=== PATIENT | male | born 1965 | race Caucasian/White ===

== ENCOUNTER 2019-10-21 14:03 | Emergency (ER) | payer OTHER ==
[~2019-10-21] VITALS: Ht 170.2 cm; Wt 59.0 kg
[~2019-10-21 14:03] MED LIST: ALPRAZOLAM2 MG PO; AMITRIPTYLINE H10 M1 PO; AMITRIPTYLINE H25 M4 PO; ATORVASTATIN CA40 MG PO; AUGMENTIN 875875 MG PO; CLONAZEPAM; CLONAZEPAM 1 MG1 M1 PO; CLONAZEPAM PO; DEPO-TESTO100 MG/1 M IM; ELAVIL; FUROSEMIDE; GLUCOPHAGE XR500 MG PO; GLUCOPHAGE500 MG PO; HYDROCODON-ACE1 EAC5 PO; HYDROCODONE-AP1 EAC6; HYDROMORPHONE IT; LASIX 20 MG TAB20 MG PO; LEVOTHYROXIN0.112 M1 PO; LISINOPRIL10 MG PO; LYRICA 50 MG50 MG PO; LYRICA100 MG PO; LYRICA200 MG PO; MELOXICAM7.5 MG PO; METFORMIN PO; METHOCARBAMOL750 MG PO; MIRALAX255 GM PO; MULTIVITAMINS PO; NORCO 5-325 TA1 EACH PO; OXYCONTIN20 M1 PO; PERCOCET 10-321 EACH; POTASSIUM20 PO; PROAIR HFA8.5 GM INH; RANITIDINE HCL150 M1 PO; SYNTHROID; SYNTHROID50 MCG PO; VITAMIN B-12100 MC1 PO; XANAX XR1 MG PO; ZETIA10 MG PO; [UNRECOGNIZED DRUG - OTHER]
[2019-10-21 15:38] LABS: ABSOLUTE NEUTROPHILS 3.7 thou/uL (1.4-8.2); BASOPHILS 1.4 % (0.0-2.0); EOSINOPHILS 5.3 % (0.0-3.0); HEMATOCRIT 40.2 % (42.0-52.0); HEMOGLOBIN 13.5 gm/dL (14.0-18.0); LYMPHOCYTES 35.2 % (24.0-44.0); MCH 30.8 pg (26.0-34.0); MCHC 33.7 g/dL (28.0-37.0); MCV 91.3 fL (80.0-100.0); MONOCYTES 6.6 % (1.0-8.0); PLATELET COUNT 260 thou/uL (150-400); POLYS 51.5 % (36.0-66.0); RDW 14.6 % (10.5-14.5); WBC 7.3 thou/uL (4.0-11.0)
[2019-10-21 15:50] LABS: ANION GAP 7 mmol/L (7-16); BUN 16 mg/dL (7-18); CALCIUM 8.8 mg/dL (8.5-10.1); CHLORIDE 104 mmol/L (98-107); CO2 29 mmol/L (21-32); GLUCOSE 94 mg/dL (74-106); POTASSIUM 4.2 mmol/L (3.5-5.1); SODIUM 140 mmol/L (136-145)
[2019-10-21 15:59] LABS: ALBUMIN 3.7 g/dL (3.4-5.0); DIRECT BILIRUBIN < 0.1 mg/dL (<0.1-0.2); SGOT 25 U/L (15-37); SGPT 22 U/L (30-65); TOTAL BILIRUBIN 0.4 mg/dL (0.2-1.0); TOTAL PROTEIN 6.8 g/dL (6.4-8.2); TROPONIN-I <0.06 ng/mL (<0.06)
[2019-10-21 16:54] LABS: AMP/METHAMP Negative (Negative); BARBITURATES Negative (Negative); BENZODIAZEPINES Negative (Negative); COCAINE Negative (Negative); METHADONE Negative (Negative); OPIATES POSITIVE (Negative); PCP Negative (Negative)
[2019-10-21 17:04] VITALS: BP 189/72
--- NOTE | 2019-10-24 07:40 | EKG ---
[facility] [place] [address] ELECTROCARDIOGRAM REPORT Name: JENNA SCHMITZ Room #: DEP [facility]#: [id number] Admission: 10/21/19 Attend Phys: Discharge: 10/21/19 Date of : 65 Report #: [id number] THIS REPORT FOR: cc: MAZIN - Gillian family physician/PCP MAZIN - Gillian family physician/PCP Roland Dang MD [facility] THIS REPORT FOR: //name// [facility] ED Test Date: 2019-10-21 Test Time: 15:18:56 Pat Name: JENNA SCHMITZ Department: Room: Gender: Capsule Inspector: vumspritiid : 1965 Requested By: Jeovanny Stevens Order Number: [id number] MD: Roland Dang Measurements Intervals [place] Rate: 51 P: 61 DC: 173 QRS: -20 QRSD: 91 T: 77 QT: 447 QTc: 412 Interpretive Statements Sinus rhythm Abnormal R-wave progression, early transition Left ventricular hypertrophy ST elevation, consider early repolarization Compared to ECG 10/15/2014 Repolarization abnormality is similar Electronically Signed On 10-24-2019 7:40:00 CDT by Roland Dang [email or web address] <ELECTRONICALLY SIGNED> By: Roland Dang MD, [facility] 10/24/19 0740 1518 1518 Roland Dang MD, [facility] /EPI
== END 2019-10-21 17:06 | disposition home or self-care (01) ==
LOC: ER 14:03
PROVIDERS: Emergency Medicine
DX: R56.9 Unspecified convulsions (principal); F12.90 Cannabis use, unspecified, uncomplicated; E03.9 Hypothyroidism, unspecified; M10.9 Gout, unspecified; E11.9 Type 2 diabetes mellitus without complications; G89.29 Other chronic pain; Z79.899 Other long term (current) drug therapy; Z98.890 Other specified postprocedural states

== ENCOUNTER 2020-11-21 15:24 | Inpatient (IN) | payer OTHER ==
[~2020-11-21] VITALS: Ht 167.6 cm; Wt 65.8 kg
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
[2020-11-21 15:31] VITALS: BP 90/60
[2020-11-21 15:58] LABS: ABSOLUTE NEUTROPHILS 4.5 thou/uL (1.4-8.2); BASOPHILS 0.9 % (0.0-2.0); EOSINOPHILS 1.3 % (0.0-3.0); HEMATOCRIT 31.1 % (42.0-52.0); HEMOGLOBIN 10.5 gm/dL (14.0-18.0); LYMPHOCYTES 19.3 % (24.0-44.0); MCH 30.4 pg (26.0-34.0); MCHC 33.7 g/dL (28.0-37.0); MCV 90.4 fL (80.0-100.0); MONOCYTES 10.8 % (1.0-8.0); PLATELET COUNT 311 thou/uL (150-400); POLYS 67.7 % (36.0-66.0); RBC 3.44 mil/uL (4.50-6.00); RDW 14.6 % (10.5-14.5); WBC 6.6 thou/uL (4.0-11.0)
[2020-11-21 16:18] LABS: ANION GAP 7 mmol/L (7-16); BUN 17 mg/dL (7-18); CALCIUM 8.9 mg/dL (8.5-10.1); CHLORIDE 104 mmol/L (98-107); CO2 30 mmol/L (21-32); GLUCOSE 100 mg/dL (74-106); POTASSIUM 3.4 mmol/L (3.5-5.1); SODIUM 141 mmol/L (136-145)
[2020-11-21 16:24] LABS: SALICYLATE < 2.8 mg/dL (2.8-20.0); SGOT 18 U/L (15-37); SGPT 16 U/L (16-63); TOTAL BILIRUBIN 0.4 mg/dL (0.2-1.0); TOTAL PROTEIN 6.1 g/dL (6.4-8.2)
[2020-11-21 20:36] LABS: URINE BILIRUBIN NEGATIVE (Negative); URINE BLOOD NEGATIVE (Negative); URINE CLARITY CLEAR; URINE GLUCOSE-RANDOM* NEGATIVE (Negative); URINE KETONES NEGATIVE (Negative); URINE LEUKOCYTES-REFLEX NEGATIVE (Negative); URINE NITRITE-REFLEX NEGATIVE (Negative); URINE PROTEIN (DIPSTICK) NEGATIVE (Negative); URINE SPECIFIC GRAVITY <= 1.005 (1.005-1.035); URINE UROBILINOGEN 0.2 E.U./dl (0.2-1.0)
[2020-11-21 20:37] LABS: URINE COLOR STRAW
[2020-11-21 20:47] LABS: AMP/METHAMP Negative (Negative); BARBITURATES Negative (Negative); BENZODIAZEPINES Negative (Negative); COCAINE Negative (Negative); METHADONE Negative (Negative); OPIATES Negative (Negative); PCP Negative (Negative)
[2020-11-22 03:14] LABS: HEMATOCRIT 29.8 % (42.0-52.0); HEMOGLOBIN 10.1 gm/dL (14.0-18.0); MCH 30.9 pg (26.0-34.0); MCHC 33.9 g/dL (28.0-37.0); MCV 91.2 fL (80.0-100.0); RBC 3.26 mil/uL (4.50-6.00); RDW 14.7 % (10.5-14.5); WBC 7.1 thou/uL (4.0-11.0)
[2020-11-22 03:37] LABS: ALBUMIN 2.7 g/dL (3.4-5.0); CALCIUM 8.5 mg/dL (8.5-10.1); CREATININE 0.9 mg/dL (0.7-1.3); POTASSIUM 3.9 mmol/L (3.5-5.1); TOTAL BILIRUBIN 0.4 mg/dL (0.2-1.0); TOTAL PROTEIN 5.8 g/dL (6.4-8.2)
--- NOTE | 2020-11-22 06:50 | EKG ---
[address] [place] [address] ELECTROCARDIOGRAM REPORT Name: JENNA SCHMITZ Room #: 170-4 ADM IN M.R.#: [id number] Admission: 11/21/20 Attend Phys: Collin Coker MD Discharge: Date of : 65 Report #: [id number] [facility] ED Test Date: 2020-11-21 Test Time: 16:07:39 Pat Name: JENNA SCHMITZ Department: Room: 170 Gender: M Head Well Puller: JCHAIANDREWZ : 1965 Requested By: Basil Flores Order Number: [id number] : Ifeanyi Butler Measurements Intervals [place] Rate: 56 P: 72 HI: 167 QRS: 43 QRSD: 97 T: 79 QT: 415 QTc: 401 Interpretive Statements Sinus rhythm Compared to ECG 10/21/2019 15:18:56 Left ventricular hypertrophy no longer present Electronically Signed On 11-22-2020 6:50:00 CDT by Ifeanyi Butler [email or web address] <ELECTRONICALLY SIGNED> By: Ifeanyi Butler MD, [facility] 11/22/20 0650 1607 1607 Ifeanyi Butler MD, [facility]ACC /EPI
[2020-11-22 18:15] VITALS: BP 128/75
== END 2020-11-22 18:15 | DRG 918 ==
LOC: ER 15:24 → EROBS 21:00
PROVIDERS: Nurse Practitioner Family; Student in an Organized Health Care Education/Training Program; ADMIT Hospitalist; ATTEND Hospitalist
PROC: B32R1ZZ Computerized Tomography (CT Scan) of Intracranial Arteries using Low Osmolar Contrast (ICD-10-PCS; principal; 2020-11-21)
DX: T42.4X2A Poisoning by benzodiazepines, intentional self-harm, initial encounter (principal); M10.9 Gout, unspecified; E03.9 Hypothyroidism, unspecified; G89.4 Chronic pain syndrome; F17.210 Nicotine dependence, cigarettes, uncomplicated; F32.9 Major depressive disorder, single episode, unspecified; E78.5 Hyperlipidemia, unspecified; I10 Essential (primary) hypertension; Y92.89 Other specified places as the place of occurrence of the external cause; Z20.822 Contact with and (suspected) exposure to COVID-19; Z59.0 Homelessness

== ENCOUNTER 2020-11-22 18:40 | Inpatient (IN) | payer OTHER ==
[~2020-11-22] VITALS: Ht 167.6 cm; Wt 65.8 kg
--- NOTE | 2020-11-23 06:12 | NUR ---
PATIENT ARRIVED ON [facility] UNIT VIA STRETCHER ACCOMPANIED BY [id number] FROM [facility] EMERGENCY DEPARTMENT ON 11/22/20 @ 18:30, TRANSFERRED TO BED 527B. NOTED TO BE SEDATED AND DID NOT AWAKEN DURING TRANSFER. VS 128/67 69 18 97.7oF SpO2 100% ON ROOM AIR. SKIN INTACT, RESPIRATIONS DEEP AND CLEAR WITH SNORING NOTED ON INSPIRATION. HX OF HYPOTHYROIDISM, GUD, CHRONIC PAIN SYNDROME WITH A INTRATHECAL PAIN PUMP. INTENTIONAL OVERDOSE ON CLONAZEPAMDENIES HX OF DRUG OR ALCOHOL ABUSE. DENIES PAIN AT THIS TIME. SMOKES CIGARETTES DAILY. ORIENTED X1 TO SELF ONLY, WHEN ASKED IF HE WAS TRYING TO HURT HIMSELF HE ANSWERED QUITE POSSIBLY. ACKNOWLEDGES DEPRESSION AND PARANOID. HIGH FALL RISK AND STAND BY ASSIST WHICH MAY IMPROVE PATIENT DETOXES FROM CLONAZEPAM OVERDOSE. USES PROFANITY TO ANSWER MENTAL HEALTH INTERVIEW QUESTIONS BY SAYING FUCK GIVE ME A MINUTE AND FUCK IM NOT DEAF I HEARD YOU. DPOA AND SIGNIFICANT OTHER JOHN OSCAR WAS CALLED AND GAVE CONSENT TO TREAT ON THE TELEPHONE TO TWO RNs. SHE WAS GIVEN THE PRIVACY CODE, PHONE NUMBERS TO CONTACT AND OVERVIEW OF THE H UNIT. SLEPT OVERNIGHT 10.6 HOURS, TOILETED AND DRESSED IN YELLOW SHIRT, YELLOW SOCKS AND BLUE HOSPITAL PANTS. WILL CONTINUE FREQUENT MONITORING PER UNIT PROTOCOL.
[2020-11-23 07:18] LABS: ABSOLUTE NEUTROPHILS 5.9 thou/uL (1.4-8.2); BASOPHILS 0.7 % (0.0-2.0); EOSINOPHILS 1.7 % (0.0-3.0); HEMATOCRIT 31.5 % (42.0-52.0); HEMOGLOBIN 10.7 gm/dL (14.0-18.0); LYMPHOCYTES 19.8 % (24.0-44.0); MCH 30.8 pg (26.0-34.0); MCHC 33.9 g/dL (28.0-37.0); MCV 90.8 fL (80.0-100.0); MONOCYTES 7.1 % (1.0-8.0); PLATELET COUNT 312 thou/uL (150-400); POLYS 70.7 % (36.0-66.0); RBC 3.47 mil/uL (4.50-6.00); RDW 14.7 % (10.5-14.5); WBC 8.4 thou/uL (4.0-11.0)
[2020-11-23 07:37] LABS: CHOLESTEROL 113 mg/dL (<200); HDL CHOLESTEROL 47 mg/dL (>40); LDL CHOLESTEROL 41 mg/dL (<100); TC:HDL 2.4 Ratio (Not establshd); TRIGLYCERIDE 128 mg/dL (<150); VLDL 26 mg/dL (<40)
[2020-11-23 09:34] VITALS: BP 105/80
--- NOTE | 2020-11-23 12:39 | NUR ---
Assumed care of patient 0700, patient still in bed sleeping, got him up for breakfast, cooperative and pleasant with care, breath sound clear, active bowel, color pink with brisk capillary refill, VSS, patient took his medication whole, he complained of neck pain and tylenol prn was given, patient ambulate with walker, he is very weak, eats and goes back to bed after each meal, did not paticipate in groups, he denies SI/HI, will continue to monitor patient for safety
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
--- NOTE | 2020-11-23 18:22 | NUR ---
A copy of the DPOA was requested from [facility]. The DPOA document was recieved and a copy was placed in the Pt's chart.
[2020-11-23 19:46] VITALS: BP 151/81
[2020-11-23 20:40] VITALS: BP 151/81
[2020-11-23 23:06] LABS: GLYCOHEMOGLOBIN (HGB A1C) 5.6 % (4.8-5.6)
--- NOTE | 2020-11-24 04:51 | NUR ---
PATINET CARE WAS RESUMED AT 1900. HE IS RESTING IN BED AND WITH EYES CLOSED. HE DENIES PAINS, SI,AVH,HE TOOK HI. CONTINENT OF BOWEL AND BLADDER. BED IS LOW, LOCKED AND ALARMED. NONE SKID SOCKES AND YELLOW TOP ON. LUNGS ARE CLEAR, BS ACTIVE Q QUADS. HE TOOK HIS MED WHOLE . CONTINUE CARE
[2020-11-24 09:03] VITALS: BP 159/88
[2020-11-24 09:15] VITALS: BP 159/88
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
[2020-11-24 20:09] VITALS: BP 147/79
--- NOTE | 2020-11-25 03:27 | NUR ---
PT CARE ASSUMED WITH PT IN THE DAY ROOM WITH PEERS WATCHING TV.PT IS A/O X4.PT IS UP WITH WALKER .PT C/O PAIN AND NORCO PRN GIVEN FOR PAIN MANAGEMENT.PT TAKE MEDS WHOLE WITH NO ISSUES NOTED.PT DENIED ANY SI PLANS.PT ASKED FOR PUDDING AND JUICE FOR SNACKS AND WAS GIVEN STAFF.PT HAD NO BEHAVIORAL ISSUES TILL THIS POINT.PT WENT TO BED AT ABOUT 2200.WILL CONTINUE TO MONITOR PER POC
[2020-11-25 10:04] VITALS: BP 192/98
[2020-11-25 11:44] VITALS: BP 172/82
--- NOTE | 2020-11-25 14:02 | NUR ---
1402 RESUMMED CARE FROM OVERNIGHT SHIFT THIS AM PATIENT IN DAY ROOM SITTING QUIET. PATIENT DENIES SI/HI/AH/VH AT PRESENT; PATIENT STATES HOS DEPRESSION AND ANXIETY WHICH HE RATES A 9. PATIENT TOOK MEDICATION WITHOUT INCIDENCE PATIENTS ABDOMEN SOFT BOWEL SOUNDS PRESENT. PATIENTS LUNGS CLEAR PATIENT PARTICIPATES IN GROUP. PATIENT HAS PAIN IN NECK AND BACL AREA STATES HIS PAIN IS A 9. PATIENT HAS NOT DISPLAYED ANY BEHAVIORS WILL CONTINUE TO MONITOR PATIENT FOR SAFETY AND BEHAVIORS.
[2020-11-25 20:02] VITALS: BP 170/80
--- NOTE | 2020-11-26 05:01 | NUR ---
11-25-20 CARE TRANSFERRED 1899 OBSERVED PT SITTING IN DAY ROOM SOCIALIZING WITH PEERS. LATER PT AAOX4, VSS, RR EVEN AND NONLABORED ON RA. PT DENIES SI/HI. PT REPORTS PAIN IN NECK SCALES 8 ON 0-10 SCALE. DURING MEDICATION PT HAD NO DIFFICLTUIES TAKING WHOLE WITH WATER. PAIN REASSESSMENT PT SCALED PAIN AT 5 O-10 SCALE, NOTED PT HAD SOME RESTLESS OBSERVED STEADY GAIT WHILE WALKING IN HALLWAY. LATER NOTED PT RESTING WITH EYES CLOSED IN BED, PT IWLL CONTINUE TO BE MONITOR PER [facility] PROTOCOL.
--- NOTE | 2020-11-26 11:07 | NUR ---
SW met with Pt concerning discharge. Pt stated he did not have anywhere to go. Pt asked SW to contact his sister Estrella concerning discharge to her home. SW talked to Pt going to a homeless custodial. SW also spoke with Pt about the suicide prevention program through [employer]. Pt was agreeable to a [facility]. Pt had no other question or concerns. SW attempted to contact Estrella. SW left a message for Estrella requesting a call back. SW will continue to follow up.
--- NOTE | 2020-11-26 12:15 | NUR ---
SHITAL spoke with Nurse Ham at [facility]. Fatoumata requested H&P and nursing notes be faxed to [phone]. Fatoumata explained this will assist in further assesing the Pt for appropriateness for the [facility]. SHITAL did fax over requested items
[2020-11-26] MEDS ORDERED: LIPITOR40 MG PO (14:15)
[2020-11-26] MEDS ORDERED: HYDROCODON-ACE1 EAC7 PO (14:15)
[2020-11-26] MEDS ORDERED: SYNTHROID100 MC1 PO (14:18)
[2020-11-26 15:30] VITALS: BP 170/80
--- NOTE | 2020-11-26 18:33 | NUR ---
Assumed pt care at 0700. pt was in the day room alert. Alert and oriented x4. Assessments completed, vss. lungs clear, active bowel sound. Took meds whole, no difficulty noted. Ambulates with a steady gait. No sign of acute distress noted upon assessments. Denies SI/HI. C/O PAIN. pain meds administered as ordered. Continent of bowel and bladder. 1624 pt was d/c to his sister, with DC instrution and belongings. Pt exited the hospital via entrance exit.
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
== END 2020-11-26 16:19 | disposition home or self-care (01) | DRG 881 ==
LOC: SBH 18:40
PROVIDERS: Nurse Practitioner Family; ADMIT Psychiatry & Neurology Psychiatry; ATTEND Psychiatry & Neurology Psychiatry
DX: F32.9 Major depressive disorder, single episode, unspecified (principal); T42.4X1A Poisoning by benzodiazepines, accidental (unintentional), initial encounter; E03.9 Hypothyroidism, unspecified; E78.5 Hyperlipidemia, unspecified; I10 Essential (primary) hypertension; G89.4 Chronic pain syndrome; M54.9 Dorsalgia, unspecified; G62.9 Polyneuropathy, unspecified; M10.9 Gout, unspecified; R73.03 Prediabetes; Z85.47 Personal history of malignant neoplasm of testis; Z87.891 Personal history of nicotine dependence; Y92.89 Other specified places as the place of occurrence of the external cause
CPT/HCPCS: 10880